=== PATIENT | male | born 1960 | race African-American/Black ===

== ENCOUNTER 2019-03-17 11:21 | Emergency (ER) | payer BC ==
[~2019-03-17] VITALS: Ht 180.3 cm; Wt 90.0 kg
[2019-03-17] MEDS ORDERED: HYDROCODONE/ACETAMINOPHEN 5/325MG TABLET PO ONE (12:15)
[2019-03-17] MEDS ORDERED: MORPHINE SULFATE 10 MG/ML CPJ IM ONE (14:30)
[2019-03-17] MEDS ORDERED: ONDANSETRON 4MG ODT PO ONE (14:30)
[2019-03-17 15:29] VITALS: BP 138/83
== END 2019-03-17 15:30 | disposition home or self-care (01) ==
LOC: ER 11:39
DX: S82.145A Nondisplaced bicondylar fracture of left tibia, initial encounter for closed fracture (principal); I10 Essential (primary) hypertension; W03.XXXA Other fall on same level due to collision with another person, initial encounter; Y93.89 Activity, other specified; Y92.488 Other paved roadways as the place of occurrence of the external cause
CPT/HCPCS: 29505; 73562; 96372; 99283; J2270; Q0162; Z7610